=== PATIENT | male | born 1945 | race Caucasian/White ===

== ENCOUNTER 2016-06-23 09:46 | Emergency (ER) | payer MEDICARE, BC ==
--- NOTE | 2016-06-23 09:51 | EDM.PDOC ---
ED HPI ENT - General Chief Complaint: ENT Problem Stated Complaint: BLOODY NOSE THAT WONT STOP Time Seen by Provider: 06/23/16 09:49 Source of Information: Reports: Patient, Family, RN, RN notes reviewed History Limitations: Reports: No limitations - History of Present Illness INITIAL COMMENTS - FREE TEXT/NARRATIVE: Patient presents to the ED at [facility] with a nosebleed that started around 8:30 this AM. Patient is unable to control the bleeding on his own. He is taking Coumadin. He had had a recent URI and blowing his nose a lot. Symptom Onset Date: 06/23/16 Symptom Onset Time: 08:30 Location: Reports: left nares - Related Data Allergies/ADRs: Allergies Allergy/AdvReac Type Severity Reaction Status Date / Time No Known Allergies Allergy Verified 05/15/16 10:20 Home Meds: Home Meds Albuterol [Proventil] 2 puff INH Q4HR PRN 04/02/13 [History] Potassium Chloride 10 meq PO BID 04/02/13 [History] Simvastatin [Zocor] 10 mg PO BEDTIME 04/02/13 [History] Terazosin [Hytrin] 10 mg PO BEDTIME 04/02/13 [History] Warfarin [Coumadin] 2.5 mg PO ASDIRECTED 04/02/13 [History] amLODIPine [Norvasc] 5 mg PO DAILY 04/02/13 [History] Allopurinol [Zyloprim] 300 mg PO DAILY 03/07/14 [History] Budesonide/Formoterol [Symbicort 160-4.5 MCG] 2 puff INH BID 03/07/14 [History] Colchicine [Colcrys] 2 tab PO ASDIRECTED PRN 03/07/14 [History] Cholecalciferol (Vitamin D3) [D-2000] 2,000 unit PO DAILY 05/04/15 [History] Enoxaparin [Lovenox] 100 mg SUBCUT Q12HR 05/04/15 [History] Ferrous Sulfate 325 mg PO BID 05/04/15 [History] Magnesium Oxide 400 mg PO BID 05/04/15 [History] Multivit-Min/Iron Fum/Folic AC [Kfwoi-Zpbilkb-Oemchqrw Tablet] 1 tab PO DAILY [History] Tiotropium [Spiriva HandiHaler] 18 mcg INH DAILY 05/04/15 [History] Past Medical History HEENT History: Reports: Cataract, Impaired vision Cardiovascular History: Reports: Afib, CAD, Heart Failure, Heart valve replacement, High cholesterol, Hypertension, SOB on exertion Other Cardiovascular History: CHRONIC DIASTOLIC CONGESTIVE HEART FAILURE. CHRONIC A-FIB. AORTIC STENOSIS Respiratory History: Reports: Asthma, COPD, Sleep apnea, Other (see below) Other Respiratory History: HX DEPENDENCE ON SUPPLEMENTAL OXYGEN. ALLERGIC RHINITIS. PANLOBULAR EMPHYSEMA Gastrointestinal History: Reports: Colon polyp, GERD, Other (see below) Other Gastrointestinal History: COLON POLYPS Other Genitourinary History: PROTEIN UREA Musculoskeletal History: Reports: Arthritis, Gout Other Musculoskeletal History: MORBID OBESITY. STRAIN MID BACK. LOW BACK PAIN. BUNION GREAT TOE OF LEFT FOOT Neurological History: Reports: Neuropathy, peripheral Psychiatric History: Reports: Anxiety Other Psychiatric History: MALADAPTIVE HEALTH BEHAVIOURS AFFECTING MEDICAL CONDITION Endocrine/Metabolic History: Reports: Diabetes, type II, Vitamin D deficiency Hematologic History: Reports: Anemia, Anticoagulation therapy, Blood transfusion (s), Iron deficiency Other Hematologic History: VITAMIN D DEFICIENCY Other Dermatologic History: RASH - Past Surgical History HEENT Surgical History: Reports: Cataract surgery Cardiovascular Surgical History: Reports: Valve replacement Other Cardiovascular Surgeries/Procedures: S/P AORTIC VALVE REPLACEMENT WITH METALLIC VALVE Respiratory Surgical History: Reports: Other (see below) Other Respiratory Surgeries/Procedures: THOROSCOPY GI Surgical History: Reports: Bariatric procedure, Colonoscopy Other GI Surgeries/Procedures: HERNIA REPAIR. GASTRIC BYPASS Social & Family History - Tobacco Use Smoking Status *Q: Former Smoker - Alcohol Use Days Per Week of Alcohol Use: 0 Number of Drinks Per Day: 5 Total Drinks Per Week: 0 - Recreational Drug Use Recreational Drug Use: No ED ROS ENT - Review of Systems Review Of Systems: See Below Constitutional: Denies: fever, chills, weakness HEENT: Reports: Nosebleed Respiratory: Denies: Shortness of Breath, Cough Cardiovascular: Denies: Chest pain, Palpitations Skin: Reports: no symptoms Neurological: Reports: No Symptoms ED EXAM, ENT - Physical Exam Exam: See Below Exam Limited By: No limitations General Appearance: alert, no apparent distress Nose: nasal tenderness, active bleeding Mouth/Throat: Normal inspection Respiratory/Chest: no respiratory distress, lungs clear, normal breath sounds Cardiovascular: regular rate, rhythm Neurological: alert, oriented Skin: Warm, Dry, Intact, Normal color, No rash ED ENT PROCEDURES - Epistaxis Procedure Indication: epistaxis, uncontrolled Recent anticoagulants/antiplatlets: Yes Uncontrolled HTN: No Recent septal/nasal surgery: No Site of bleeding: left nare Clearing of clots: patient blew nose Ice pack to area: No Posterior packing: long inflatable nasal tampon Complications: No Course - Vital Signs Last Recorded V/S: Last Vital Signs Temp 37.1 C 06/23/16 09:55 Pulse 53 L 06/23/16 09:55 Resp 20 06/23/16 09:55 BP 110/58 L 06/23/16 09:55 Pulse Ox 93 L 06/23/16 09:55 Departure - Departure Time of Disposition: 10:38 Disposition: Home, Self-Care 01 Condition: good Clinical Impression: Posterior epistaxis Instructions: Nosebleed Referrals: Ariela Gonsales MD [Primary Care Provider] - Forms: ED Department Discharge Additional Instructions: 1. Do not remove packing unless bleeding become much worse 2. Keep bandage on to help with any drainage 3. Continue taking your medications at home without and changes 4. See me in the clinic this Friday for a follow up - Problem List Review Problem List Initiated/Reviewed/Updated: Yes
== END 2016-06-23 10:45 | disposition home or self-care (01) ==
LOC: VM.ED 09:46
CPT/HCPCS: 30905; 99282-GF-25; 99283

== ENCOUNTER 2018-05-16 09:23 | Emergency (ER) | payer MEDICARE, BC ==
[2018-05-16 09:40] VITALS: BP 167/56
--- NOTE | 2018-05-16 16:01 | EDM.PDOC ---
ED HPI GENERAL MEDICAL PROBLEM - General Chief Complaint: Genitourinary Problem Stated Complaint: URINARY ISSUES Time Seen by Provider: 05/16/18 09:30 Source of Information: Reports: Patient (.) History Limitations: Reports: No Limitations - History of Present Illness INITIAL COMMENTS - FREE TEXT/NARRATIVE: Pt. presents to ER with 2 day history of dysuria. States that he did experience some fever yesterday. No chills. No chest pain or shortness of breath. No nausea , vomiting, or diarrhea. No abdominal of flank pain. Pt. states that he has never had a UTI in the past. Onset Date: 05/14/18 Duration: Constant Quality: Reports: Burning Severity: Moderate - Related Data Allergies Allergy/AdvReac Type Severity Reaction Status Date / Time No Known Allergies Allergy Verified 05/15/16 10:20 Home Meds: Home Meds Albuterol [Proventil] 2 puff INH Q4HR PRN 04/02/13 [History] Potassium Chloride 10 meq PO BID 04/02/13 [History] Simvastatin [Zocor] 10 mg PO BEDTIME 04/02/13 [History] Terazosin [Hytrin] 10 mg PO BEDTIME 04/02/13 [History] Warfarin [Coumadin] 2.5 mg PO ASDIRECTED 04/02/13 [History] amLODIPine [Norvasc] 5 mg PO DAILY 04/02/13 [History] Allopurinol [Zyloprim] 300 mg PO DAILY 03/07/14 [History] Budesonide/Formoterol [Symbicort 160-4.5 MCG] 2 puff INH BID 03/07/14 [History] Colchicine [Colcrys] 2 tab PO ASDIRECTED PRN 03/07/14 [History] Cholecalciferol (Vitamin D3) [D-2000] 2,000 unit PO DAILY 05/04/15 [History] Enoxaparin [Lovenox] 100 mg SUBCUT Q12HR 05/04/15 [History] Ferrous Sulfate 325 mg PO BID 05/04/15 [History] Magnesium Oxide 400 mg PO BID 05/04/15 [History] Multivit-Min/Iron Fum/Folic AC [Ezcxe-Mthgbgk-Ohnkozqb Tablet] 1 tab PO DAILY [History] Tiotropium [Spiriva HandiHaler] 18 mcg INH DAILY 05/04/15 [History] Past Medical History HEENT History: Reports: Cataract, Impaired Vision Cardiovascular History: Reports: Afib, CAD, Heart Failure, Heart Valve Replacement, High Cholesterol, Hypertension, SOB on Exertion Other Cardiovascular History: CHRONIC DIASTOLIC CONGESTIVE HEART FAILURE. CHRONIC A-FIB. AORTIC STENOSIS Respiratory History: Reports: Asthma, COPD, Sleep Apnea, Other (See Below) Other Respiratory History: HX DEPENDENCE ON SUPPLEMENTAL OXYGEN. ALLERGIC RHINITIS. PANLOBULAR EMPHYSEMA Gastrointestinal History: Reports: Colon Polyp, GERD, Other (See Below) Other Gastrointestinal History: COLON POLYPS Other Genitourinary History: PROTEIN UREA Musculoskeletal History: Reports: Arthritis, Gout Other Musculoskeletal History: MORBID OBESITY. STRAIN MID BACK. LOW BACK PAIN. BUNION GREAT TOE OF LEFT FOOT Neurological History: Reports: Neuropathy, Peripheral Psychiatric History: Reports: Anxiety Other Psychiatric History: MALADAPTIVE HEALTH BEHAVIOURS AFFECTING MEDICAL CONDITION Endocrine/Metabolic History: Reports: Diabetes, Type II, Vitamin D Deficiency Hematologic History: Reports: Anemia, Anticoagulation Therapy, Blood Transfusion (s), Iron Deficiency Other Hematologic History: VITAMIN D DEFICIENCY Other Dermatologic History: RASH - Past Surgical History HEENT Surgical History: Reports: Cataract Surgery Cardiovascular Surgical History: Reports: Valve Replacement Respiratory Surgical History: Reports: Other (See Below) GI Surgical History: Reports: Bariatric Procedure, Colonoscopy Social & Family History - Family History Family Medical History: Noncontributory - Tobacco Use Smoking Status *Q: Unknown Ever Smoked ED ROS GENERAL - Review of Systems Review Of Systems: See Below Constitutional: Reports: No Symptoms HEENT: Reports: No Symptoms Respiratory: Reports: No Symptoms Cardiovascular: Reports: No Symptoms Endocrine: Reports: No Symptoms GI/Abdominal: Reports: No Symptoms : Reports: Dysuria, Frequency, Urgency Musculoskeletal: Reports: No Symptoms Skin: Reports: No Symptoms Neurological: Reports: No Symptoms ED EXAM, GENERAL - Physical Exam Exam: See Below Exam Limited By: No Limitations General Appearance: Alert, WD/WN, No Apparent Distress Respiratory/Chest: No Respiratory Distress, Lungs Clear, Normal Breath Sounds, No Accessory Muscle Use, Chest Non-Tender Cardiovascular: Normal Peripheral Pulses, Regular Rate, Rhythm, No Edema, No Gallop, No JVD, No Murmur, No Rub Peripheral Pulses: 4+: Radial (L) GI/Abdominal: Normal Bowel Sounds, Soft, Non-Tender, No Organomegaly, No Distention, No Abnormal Bruit, No Mass (Male) Exam: Deferred Rectal (Males) Exam: Deferred Back Exam: Normal Inspection, Full Range of Motion, NT Extremities: Normal Inspection, Normal Range of Motion, Non-Tender, Normal Capillary Refill, No Pedal Edema Course - Vital Signs Last Recorded V/S: Last Vital Signs Temp 37.4 C 05/16/18 09:30 Pulse 68 05/16/18 09:30 Resp 20 05/16/18 09:30 BP 167/56 H 05/16/18 09:30 Pulse Ox 95 05/16/18 09:30 - Orders/Labs/Meds Labs: Laboratory Tests 05/16/18 Range/Units 09:41 Urine Color Yellow (YELLOW) Urine Appearance Slightly cloudy H (CLEAR) Urine pH 5.5 (5.0-8.0) Ur Specific [place] 1.020 Urine Protein 100 H (NEGATIVE) mg/dL Urine Glucose (UA) Negative (NEGATIVE) mg/dL Urine Ketones Negative (NEGATIVE) mg/dL Urine Occult Blood Moderate H (NEGATIVE) Urine Nitrite Negative (NEGATIVE) Urine Bilirubin Negative (NEGATIVE) Urine Urobilinogen 0.2 (0.2) EU/dL Ur Leukocyte Esterase Trace H (NEGATIVE) Urine RBC 0-5 (NOT SEEN) /HPF Urine WBC 5-10 H (NOT SEEN) /HPF Ur Squamous Epith Cells Rare (NEGATIVE) /HPF Urine Bacteria Few H (NEGATIVE) /HPF Urine Mucus Rare H (NEGATIVE) /LPF Departure - Departure Time of Disposition: 10:30 Disposition: Home, Self-Care 01 Clinical Impression: UTI, Urinary tract infectious disease - Discharge Information Instructions: Urinary Tract Infection, Adult Referrals: Jann Park MD [Primary Care Provider] - Forms: ED Department Discharge Additional Instructions: Bactrim DS one twice daily for 5 days Drink plenty of fluids Tylenol as needed for fever Follow-up in clinic in 10 days or so for recheck. - Assessment/Plan Plan: Bactrim DS one twice daily for 5 days Drink plenty of fluids Tylenol as needed for fever Follow-up in clinic in 10 days or so for recheck.
== END 2018-05-16 09:57 | disposition home or self-care (01) ==
LOC: VM.ED 09:23
DX: N39.0 Urinary tract infection, site not specified (principal); I11.0 Hypertensive heart disease with heart failure; I50.9 Heart failure, unspecified; E78.00 Pure hypercholesterolemia, unspecified; J44.9 Chronic obstructive pulmonary disease, unspecified; F41.9 Anxiety disorder, unspecified; E11.9 Type 2 diabetes mellitus without complications; I48.91 Unspecified atrial fibrillation; Z79.01 Long term (current) use of anticoagulants; Z79.899 Other long term (current) drug therapy
CPT/HCPCS: 81001; 99283

== ENCOUNTER 2019-05-15 11:05 | Emergency (ER) | payer MEDICARE, BC ==
--- NOTE | 2019-05-15 11:37 | EDM.PDOC ---
ED HPI GENERAL MEDICAL PROBLEM - General Chief Complaint: Lower Extremity Injury/Pain Stated Complaint: FOOT REBANDAGED Time Seen by Provider: 05/15/19 11:20 Source of Information: Reports: Patient, Family History Limitations: Reports: No Limitations - History of Present Illness INITIAL COMMENTS - FREE TEXT/NARRATIVE: Patient presents today with concerns of post op bleeding. Had foot surgery yesterday by Dr. Carlos Clay. History of diabetes, had issues with non healing ulcers/callus formation to the outer foot and base of his great toe. Had the toes realigned with the hope that it will alleviate pressure on his foot. Does not have much sensation in his foot due to history of diabetes. Is on Coumadin. Did hold prior to surgery, INR was 1.7 prior to surgery. Was told her could resume use today. They noted that the bleeding was saturating his bandage last night, put towels on the area to reinforce but had bled through them this am. Contacted the surgeon's office and was told to have the foot evaluated. He denies increased pain. Did not fall or have any trauma to the foot. Has been walking on his heel as per recommendations. 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[employer]: Reports: Dressing(s) - Related Data Allergies Allergy/AdvReac Type Severity Reaction Status Date / Time No Known Allergies Allergy Verified 05/15/19 11:45 Home Meds: Home Meds Albuterol [Proventil] 2 puff INH Q4HR PRN 04/02/13 [History] Potassium Chloride 10 meq PO BID 04/02/13 [History] Simvastatin [Zocor] 10 mg PO BEDTIME 04/02/13 [History] Terazosin [Hytrin] 10 mg PO BEDTIME 04/02/13 [History] Warfarin [Coumadin] 2.5 mg PO ASDIRECTED 04/02/13 [History] amLODIPine [Norvasc] 5 mg PO DAILY 04/02/13 [History] Budesonide/Formoterol [Symbicort 160-4.5 MCG] 2 puff INH BID 03/07/14 [History] Colchicine [Colcrys] 2 tab PO ASDIRECTED PRN 03/07/14 [History] allopurinoL [Zyloprim] 300 mg PO DAILY 03/07/14 [History] Cholecalciferol (Vitamin D3) [D-1999] 2,000 unit PO DAILY 05/04/15 [History] Enoxaparin [Lovenox] 100 mg SUBCUT Q12HR 05/04/15 [History] Ferrous Sulfate 325 mg PO BID 05/04/15 [History] Magnesium Oxide 400 mg PO BID 05/04/15 [History] Multivit-Min/Iron Fum/Folic AC [Ephff-Taaaxid-Hcmazeuo Tablet] 1 tab PO DAILY [History] Tiotropium [Spiriva HandiHaler] 18 mcg INH DAILY 05/04/15 [History] Past Medical History HEENT History: Reports: Cataract, Impaired Vision Cardiovascular History: Reports: Afib, CAD, Heart Failure, Heart Valve Replacement, High Cholesterol, Hypertension, SOB on Exertion Other Cardiovascular History: CHRONIC DIASTOLIC CONGESTIVE HEART FAILURE. CHRONIC A-FIB. AORTIC STENOSIS Respiratory History: Reports: Asthma, COPD, Sleep Apnea, Other (See Below) Other Respiratory History: HX DEPENDENCE ON SUPPLEMENTAL OXYGEN. ALLERGIC RHINITIS. PANLOBULAR EMPHYSEMA Gastrointestinal History: Reports: Colon Polyp, GERD, Other (See Below) Other Gastrointestinal History: COLON POLYPS Other Genitourinary History: PROTEIN UREA Musculoskeletal History: Reports: Arthritis, Gout Other Musculoskeletal History: MORBID OBESITY. STRAIN MID BACK. LOW BACK PAIN. BUNION GREAT TOE OF LEFT FOOT Neurological History: Reports: Neuropathy, Peripheral Psychiatric History: Reports: Anxiety Other Psychiatric History: MALADAPTIVE HEALTH BEHAVIOURS AFFECTING MEDICAL CONDITION Endocrine/Metabolic History: Reports: Diabetes, Type II, Vitamin D Deficiency Hematologic History: Reports: Anemia, Anticoagulation Therapy, Blood Transfusion (s), Iron Deficiency Other Hematologic History: VITAMIN D DEFICIENCY Other Dermatologic History: RASH - Past Surgical History HEENT Surgical History: Reports: Cataract Surgery Cardiovascular Surgical History: Reports: Valve Replacement Respiratory Surgical History: Reports: Other (See Below) GI Surgical History: Reports: Bariatric Procedure, Colonoscopy Social & Family History - Family History Family Medical History: Noncontributory - Tobacco Use Smoking Status *Q: Unknown Ever Smoked Review of Systems - Review of Systems Review Of Systems: See Below Constitutional: Denies: Fever, Weakness Eyes: Reports: No Symptoms Ears: Reports: No Symptoms Nose: Reports: No Symptoms Mouth/Throat: Reports: No Symptoms Respiratory: Reports: No Symptoms Cardiovascular: Reports: No Symptoms GI/Abdominal: Reports: No Symptoms Musculoskeletal: Reports: Foot Pain, Other (bleeding noted on bandages) Skin: Reports: Other (incision) ED EXAM, GENERAL - Physical Exam Exam: See Below Exam Limited By: No Limitations General Appearance: Alert, WD/WN, No Apparent Distress Extremities: Other (Thick bandage removed from left foot, is saturated with blood, much of it dry. Has intact incision to left lateral distal foot, is oozing through incision. Has incision to great toe medial and distal, cleaned up, no areas of bleeding noted. New xeroform applied with a pressure bandage. Incisions are well approximated. Sutures are intact.) Skin Exam: Warm, Dry Course - Re-Assessments/Exams Free Text/Narrative Re-Assessment/Exam: 05/15/19 Foot clean, xeroform applied and new pressure bandages and kerlix applied and wrapped with coban. Departure - Departure Time of Disposition: 11:36 Disposition: Home, Self-Care 01 Condition: Good Clinical Impression: Post-op bleeding - Discharge Information *PRESCRIPTION DRUG MONITORING PROGRAM REVIEWED*: No *COPY OF PRESCRIPTION DRUG MONITORING REPORT IN PATIENT LAVINIA: No Referrals: Jann Park MD [Primary Care Provider] - Forms: ED Department Discharge Additional Instructions: 1. Keep leg elevated 2. Reinforce bandage as needed 3. Ice to foot every 2 hours through the day 4. Call or return with questions or concerns. Sepsis Event Note - Focused Exam Date Exam was Performed: 05/15/19 Time Exam was Performed: 11:49
[2019-05-15 12:17] VITALS: BP 153/77; PULSE 72
== END 2019-05-15 11:42 | disposition home or self-care (01) ==
LOC: SUPCPDRO 11:05 → VM.ED 11:05
DX: Z48.01 Encounter for change or removal of surgical wound dressing (principal); I25.10 Atherosclerotic heart disease of native coronary artery without angina pectoris; I11.0 Hypertensive heart disease with heart failure; I50.32 Chronic diastolic (congestive) heart failure; E78.00 Pure hypercholesterolemia, unspecified; I48.91 Unspecified atrial fibrillation; E11.42 Type 2 diabetes mellitus with diabetic polyneuropathy; J43.1 Panlobular emphysema; Z79.01 Long term (current) use of anticoagulants; Z79.51 Long term (current) use of inhaled steroids; Z79.899 Other long term (current) drug therapy; Z99.81 Dependence on supplemental oxygen
CPT/HCPCS: 99283

== ENCOUNTER 2020-02-25 06:33 | Day surgery (SDC) | payer MEDICARE, BC ==
[2020-02-25] MEDS ORDERED: Lactated Ringers 1,000 ML IV SCH (07:00)
[2020-02-25] MEDS ORDERED: Propofol 200 MG/20 ML SDV ONE ×3 (07:34→08:16)
[2020-02-25 08:43] VITALS: BP 133/62; PULSE 54
--- NOTE | 2020-02-25 10:04 | OR ---
PREOPERATIVE DIAGNOSES: 1. Screening colonoscopy. 2. History of partial colectomy for a large villous adenoma. No malignancy. POSTOPERATIVE DIAGNOSES: 1. Screening colonoscopy. 2. History of partial colectomy for a large villous adenoma. No malignancy. PROCEDURE PERFORMED: Total flexible colonoscopy. ANESTHESIA: MAC anesthesia. COMPLICATIONS: None. BLOOD LOSS: None. FINDINGS: 1. Patent ileocolic anastomosis. 2. Large amount of liquid stool which was generally able to be suctioned. 3. Otherwise, normal total flexible colonoscopy. START TIME: 0751. ILEOCOLIC ANASTOMOSIS: 0800. STOP TIME: 0817. BOWEL PREP: [place] class 2. INDICATIONS FOR PROCEDURE: Mr. Maher is a 74-year-old male who is here for routine screening colonoscopy. He has a history of a large villous adenoma that was removed via surgery. There was no malignancy in that specimen. He had normal colonoscopy in 2017, although the endoscopist was apparently unable to completely get through to the anastomosis. Currently, he denies bloody or dark black stools. His father had colorectal cancer in his 80s. DETAILS OF PROCEDURE: After informed consent was obtained, the patient was brought to the procedure room and placed in left lateral decubitus position. MAC anesthesia was induced by Anesthesia colleagues. The colonoscope was introduced into the patient's rectum and advanced all the way to the ileocolic anastomosis. He did have a somewhat redundant sigmoid colon, so a little bit of abdominal pressure was utilized to reach the end of the colon with the endoscope. The ileocolic anastomosis was photographed and the small bowel was intubated and was unremarkable. The colonoscope was then slowly withdrawn and a retroflexed view was obtained. No pathology was identified. He did have a fair bit of liquid stool that was in the colon which we spent some time suctioning, although we felt that the mucosa was able to be evaluated well. The colonoscope was withdrawn and the patient was awoken from MAC anesthesia by Anesthesia colleagues without incident. RECOMMENDATIONS: Repeat screening colonoscopy in 5 years. RKM: 02/25/2020 08:24:43 MODL: 02/25/2020 09:36:27 /[id number]
== END 2020-02-25 09:48 | disposition home or self-care (01) ==
LOC: VM.SDS 06:33
PROVIDERS: ATTEND Student in an Organized Health Care Education/Training Program
DX: Z12.11 Encounter for screening for malignant neoplasm of colon (principal); I11.0 Hypertensive heart disease with heart failure; N52.9 Male erectile dysfunction, unspecified; G47.33 Obstructive sleep apnea (adult) (pediatric); I48.20 Chronic atrial fibrillation, unspecified; F41.9 Anxiety disorder, unspecified; I50.32 Chronic diastolic (congestive) heart failure; E78.00 Pure hypercholesterolemia, unspecified; E11.42 Type 2 diabetes mellitus with diabetic polyneuropathy; J44.9 Chronic obstructive pulmonary disease, unspecified; E66.3 Overweight; Z01.812 Encounter for preprocedural laboratory examination; Z20.828 Contact with and (suspected) exposure to other viral communicable diseases; Z68.27 Body mass index [BMI] 27.0-27.9, adult; Z86.010 Personal history of colon polyps; Z90.49 Acquired absence of other specified parts of digestive tract; Z98.0 Intestinal bypass and anastomosis status; Z95.4 Presence of other heart-valve replacement; Z79.899 Other long term (current) drug therapy; Z79.01 Long term (current) use of anticoagulants; Z88.8 Allergy status to other drugs, medicaments and biological substances
CPT/HCPCS: 00812; 85610; G0105; J2704; J7120; U0002; 36415